=== PATIENT | male | born 1960 | race Caucasian/White ===

== ENCOUNTER 2019-06-21 07:43 | Inpatient (IN) | payer BC, OTHER ==
[~2019-06-21] VITALS: Ht 185.4 cm; Wt 90.7 kg
[2019-06-21] MEDS ORDERED: NITROGLYCERIN 0.4 MG/TAB BOTTLE SL ONE ×2 (08:00→08:02)
[2019-06-21] MEDS ORDERED: ASPIRIN 81 MG TAB.CHEW PO ONE ×2 (08:00→09:00)
[2019-06-21] MEDS ORDERED: LORAZEPAM 2 MG/1 ML VIAL IV ONE (08:00)
[2019-06-21] MEDS ORDERED: ASPIRIN 81 MG TAB.CHEW ONE ×2 (08:02→09:14)
[2019-06-21] MEDS ORDERED: LORAZEPAM 2 MG/1 ML VIAL ONE (08:04)
--- NOTE | 2019-06-21 08:11 | NUR ---
Chest pain 2/10 in mid chest. second dose of Nitro 0.4 SL given, BP 138/81, HR 84.
--- NOTE | 2019-06-21 08:19 | NUR ---
Pt states being pain free now. resting w/ eyes closed.
[2019-06-21 08:24] LABS: BASOPHILS # (AUTO) 0.1 K/uL (0.0-8.0); BASOPHILS % (AUTO) 1.3 % (0.0-2.0); EOSINOPHILS # (AUTO) 0.2 K/uL (0.0-0.7); EOSINOPHILS % (AUTO) 2.7 % (0.0-7.0); HEMATOCRIT 44.5 % (36.7-47.1); LYMPHOCYTES # (AUTO) 1.4 K/uL (20.0-40.0); LYMPHOCYTES % (AUTO) 23.3 % (20.5-51.5); MEAN CORPUSCULAR HEMOGLOBIN 31.6 uug (23.8-33.4); MEAN CORPUSCULAR HGB CONC 34 g/dL (32.5-36.3); MEAN CORPUSCULAR VOLUME 93.8 fL (73.0-96.2); MONOCYTES # (AUTO) 0.7 K/uL (2.0-10.0); MONOCYTES % (AUTO) 11.9 % (0.0-11.0); NEUTROPHILS # (AUTO) 3.7 K/uL (1.8-8.9); NEUTROPHILS % (AUTO) 60.8 % (38.5-71.5); PLATELET COUNT (AUTO) 160 K/uL (152-348); RED BLOOD CELL COUNT(AUTO) 4.75 MIL/uL (4.06-5.63); WHITE BLOOD COUNT (AUTO) 6.1 K/uL (3.6-10.2)
[2019-06-21 08:33] LABS: CREATININE 1.3 mg/dL (0.6-1.3)
[2019-06-21 08:39] LABS: BILIRUBIN,DIRECT 0.2 mg/dL (0.0-0.2); BILIRUBIN,TOTAL 0.8 mg/dL (0.2-1.0); TOTAL PROTEIN, SERUM 6.8 g/dL (6.4-8.2)
--- NOTE | 2019-06-21 09:12 | NUR ---
Patient is resting comfortably in bed with eyes closed, NAD noted.
--- NOTE | 2019-06-21 10:00 | NUR ---
Report given from ER nurse ; patient admitted for chest pain and shortness of breath patient in overall stable condition with stable vital signs; patient complains of random bouts of shortness of breath ; patient otherwise calm and comfortable with o2 delivered at 2ml ; patient medication compliant; patient will continue to be monitored .
[2019-06-21] MEDS: CARVEDILOL 6.25 MG TABLET PO SCH ×2 (11:54→17:41)
[2019-06-21] MEDS ORDERED: Z GUARD REMEDY PASTE 57 GM TUBE TOP PRN (13:45)
[2019-06-21] MEDS ORDERED: ZOLPIDEM 5 MG TABLET PO PRN (13:45)
[2019-06-21] MEDS ORDERED: MAGNESIUM HYDROXIDE 30 ML LIQUID UDC PO PRN (13:45)
[2019-06-21] MEDS ORDERED: ACETAMINOPHEN 325 MG TABLET PO PRN (13:45)
[2019-06-21] MEDS ORDERED: ONDANSETRON 4 MG/2 ML VIAL IV PRN (13:45)
[2019-06-21] MEDS: NICOTINE 21 MG/24HR PATCH TD SCH (14:03)
[2019-06-21 17:41] LABS: *AMPHETAMINE, URINE POSITIVE (NEGATIVE); *BARBITURATE, URINE NEGATIVE (NEGATIVE); *CANNABINOID, URINE NEGATIVE (NEGATIVE); *COCCAINE, URINE NEGATIVE (NEGATIVE); *OPIATE, URINE NEGATIVE (NEGATIVE); *PHENCYCLIDINE SCREEN,URINE NEGATIVE (NEGATIVE)
--- NOTE | 2019-06-21 19:00 | NUR ---
Patient calm and comfortable through out shift with no signs of distress; patient with bouts of complaints of shortness of breath patient with normal spo2 of 98% patient at 4l for comfort ; environmental laboratory technician reported that patient EF of 20-35%; report relayed to attending MD and panel gluer; patient scheduled for CTA of chest at [facility] with tile picker time between [id number] with Ambulance [facility] with code number [id number] . Report oncoming nurse. Patient with stable vital signs.
--- NOTE | 2019-06-21 19:00 | NUR ---
PATIENT ALERT ORIENTED, NO SOB NO CHEST PAIN, PATIENT ON TELE MONITOR SINUS RYTHYM WITH OCC PVC, CONT TO MONITOR.
--- NOTE | 2019-06-21 19:52 | NUR ---
Patient requesting that CTA of chest to not be done tomorrow morning at [facility] and is requesting for it to be done at [facility] ; Attending music teacher and case management notified of outpatient music teacher Dr. Sunil Hernandez #[phone] email [email or web address] approval of it to be done at [facility]; MD and case management will set up exam.
[2019-06-21 20:23] VITALS: BP 115/85
[2019-06-21] MEDS ORDERED: ATORVASTATIN 20 MG TABLET PO SCH (21:00)
--- NOTE | 2019-06-21 21:51 | NUR ---
PATIENT TROPONIN LEVEL FOR 1300 WAS NOT DONE ON TIME. TROPONIN LEVEL WAS TAKEN AT 2029, NOTIFBoy ESTRADA WITH ORDER TO DO TROPONIN LEVEL AFTER 6 HRS. Addendum: 06/21/19 at 2347 by MIGUEL FINCH RN PATIENT TROPONIN LEVEL FOR 1300 WAS NOT DONE ON TIME. TROPONIN LEVEL WAS TAKEN AT 2029, NOTIFBoy ESTRADA WITH ORDER TO DO TROPONIN LEVEL AFTER 6 HRS, CHARTING IN ERROR.
--- NOTE | 2019-06-21 23:23 | NUR ---
TROPONIN LEVEL 0.077 WAS REPORTED TO JOSÉ MIGUEL ESTRADA, AWAITING FOR RESPONSE.
--- NOTE | 2019-06-21 23:48 | NUR ---
Dr. Nicolas aware of current Troponin level of 0.077. Patient will have another troponin st 0220. No new order from Dr. Nicolas at this time.
[2019-06-22 00:10] VITALS: BP 125/64
--- NOTE | 2019-06-22 02:48 | NUR ---
Troponin trending on expected direction. Troponin level down to 0.059.
[2019-06-22 04:04] VITALS: BP 132/78
--- NOTE | 2019-06-22 05:54 | NUR ---
Patient remains AAOX3. In no acute distress. Denies any pain or SOB. IV site on left AC intact and patent. NSR on tele at 67/min. with episode of bradycardia 52-58/min with occasional PAC's ad PVC's. safety measure maintained and call thomson within reach.
[2019-06-22 06:30] LABS: BILIRUBIN,TOTAL 0.8 mg/dL (0.2-1.0); CREATININE 1.2 mg/dL (0.6-1.3); MAGNESIUM 2.2 mg/dL (1.8-2.4); PHOSPHOROUS 3.1 mg/dL (2.5-4.9); POTASSIUM 4.9 mmol/L (3.5-5.1); TOTAL PROTEIN, SERUM 6.9 g/dL (6.4-8.2)
[2019-06-22 06:31] LABS: BASOPHILS # (AUTO) 0.1 K/uL (0.0-8.0); BASOPHILS % (AUTO) 1.1 % (0.0-2.0); EOSINOPHILS # (AUTO) 0.3 K/uL (0.0-0.7); EOSINOPHILS % (AUTO) 3.3 % (0.0-7.0); HEMATOCRIT 48.2 % (36.7-47.1); HEMOGLOBIN 16.2 g/dL (12.5-16.3); LYMPHOCYTES # (AUTO) 1.8 K/uL (20.0-40.0); LYMPHOCYTES % (AUTO) 22.1 % (20.5-51.5); MEAN CORPUSCULAR HEMOGLOBIN 31.1 uug (23.8-33.4); MEAN CORPUSCULAR HGB CONC 34 g/dL (32.5-36.3); MEAN CORPUSCULAR VOLUME 92.8 fL (73.0-96.2); MONOCYTES # (AUTO) 0.8 K/uL (2.0-10.0); MONOCYTES % (AUTO) 10.5 % (0.0-11.0); NEUTROPHILS # (AUTO) 5.1 K/uL (1.8-8.9); PLATELET COUNT (AUTO) 189 K/uL (152-348)
[2019-06-22 06:38] LABS: THYROID STIMULATING HORMONE 0.87 mIU/mL (0.358-3.740)
--- NOTE | 2019-06-22 08:00 | NUR ---
received awake alert and oriented, denies of pain, tele SR, denies of chest pain, on 2l/nc, awaiting arrangement re transfer to [facility] for CTA cardiac- will have case management talk to him, explained plan of care, verbalized understanding, safety measures maintained
[2019-06-22] MEDS: CARVEDILOL 6.25 MG TABLET PO SCH (08:33)
[2019-06-22] MEDS: NICOTINE 21 MG/24HR PATCH TD SCH (08:33)
[2019-06-22] MEDS ORDERED: ASPIRIN 81 MG TAB.CHEW PO SCH (09:00)
[2019-06-22] MEDS ORDERED: ASPI81TA44 PO (10:54)
[2019-06-22] MEDS ORDERED: OMEP20CA11 PO (10:54)
[2019-06-22] MEDS ORDERED: LOSA25TA27 PO (10:54)
[2019-06-22] MEDS ORDERED: LOSARTAN POTASSIUM 25 MG TABLET PO SCH (11:21)
[2019-06-22] MEDS ORDERED: ATOR20TA PO (11:47)
[2019-06-22 11:56] VITALS: BP 121/87
--- NOTE | 2019-06-22 12:32 | NUR ---
PT DISCHARGE. PT DISCHARGE PACKET GIVEN . PT DISCHARGE INSTRUCTION GIVEN AND PT UNDERSTAND IT WELL. PT STABLE AND IN NO ACUTE DISTRESS. IV AND ID BRACELET REMOVED. PT WILL SEE HIS PRIMARY PHYSICIAN TODAY .
== END 2019-06-22 12:35 | disposition home or self-care (01) | DRG 280 ==
LOC: ER 07:43 → TELE3 10:15
PROVIDERS: ADMIT Nurse Practitioner Acute Care; ATTEND Nurse Practitioner Acute Care
DX: I21.4 Non-ST elevation (NSTEMI) myocardial infarction (principal); I50.23 Acute on chronic systolic (congestive) heart failure; I42.0 Dilated cardiomyopathy; I42.7 Cardiomyopathy due to drug and external agent; F15.188 Other stimulant abuse with other stimulant-induced disorder; F17.210 Nicotine dependence, cigarettes, uncomplicated; Z80.9 Family history of malignant neoplasm, unspecified; I25.10 Atherosclerotic heart disease of native coronary artery without angina pectoris; I11.0 Hypertensive heart disease with heart failure; F41.9 Anxiety disorder, unspecified
CPT/HCPCS: 36415; 70030-TC; 71045; 80307; 83735; 84100; 84443; 85025; 85730; 93005; 93307; A4663; G0378; J2060